=== PATIENT | male | born 1980 | race Caucasian/White ===

== ENCOUNTER 2019-01-11 16:52 | Emergency (ER) | payer SELFPAY ==
[2019-01-11 17:24] LABS: ABSOLUTE BASOPHILS # (AUTO) 0.1 10^3/uL (0.0-0.2); ABSOLUTE MONOCYTES (AUTO) 0.3 10^3/uL (0.1-1.4); ABSOLUTE NEUT (AUTO) 6.7 10^3/uL (1.7-8.2); EOSINOPHILS % (AUTO) 0.2 % (0-6); HEMOGLOBIN 14.9 g/dL (13.5-17.0); LYMPHOCYTES % (AUTO) 12.8 % (13-45); MEAN CORPUSCULAR HEMOGLOBIN 35.3 pg (27.0-33.4); MEAN CORPUSCULAR HGB CONC 34.7 g/dL (32.0-36.0); MEAN CORPUSCULAR VOLUME 102 fl (80-97); MONOCYTES % (AUTO) 3.2 % (3-13); PLATELET COUNT 223 10^3/uL (150-450); RED BLOOD COUNT 4.23 10^6/uL (4.35-5.55); RED CELL DISTRIBUTION WIDTH 14.1 % (11.5-14.0); SEGMENTED NEUTROPHILS % (AUTO) 82.8 % (42-78); TOTAL CELLS COUNTED % (AUTO) 100 %; WHITE BLOOD COUNT 8.1 10^3/uL (4.0-10.5)
[2019-01-11] MEDS ORDERED: NORMAL SALINE 1000 ML 1,000 ML IV ONE (17:41)
[2019-01-11] MEDS ORDERED: LORAZEPAM 0.5 MG TABLET PO ONE (17:41)
[2019-01-11 17:50] LABS: ALBUMIN 4.2 g/dL (3.5-5.0); ALKALINE PHOSPHATASE 60 U/L (38-126); ANION GAP 15 (5-19); ASPARTATE AMINO TRANSFERASE 91 U/L (17-59); BILIRUBIN,DIRECT 0.3 mg/dL (0.0-0.4); BILIRUBIN,TOTAL 0.9 mg/dL (0.2-1.3); BLOOD UREA NITROGEN 8 mg/dL (7-20); CALCIUM 9.4 mg/dL (8.4-10.2); CARBON DIOXIDE 22 mmol/L (22-30); CHLORIDE 100 mmol/L (98-107); CREATINE KINASE 293 U/L (55-170); GLUCOSE 106 mg/dL (75-110); POTASSIUM 4.3 mmol/L (3.6-5.0); TOTAL PROTEIN 6.8 g/dL (6.3-8.2)
[2019-01-11 18:00] LABS: CREATINE KINASE MB 3.22 ng/mL (<4.55)
[2019-01-11 18:01] LABS: TROPONIN I < 0.012 ng/mL
[2019-01-11 18:24] LABS: ALCOHOL 12 mg/dL (NONE DETECTED); SALICYLATE 1.7 mg/dL (2.0-20.0)
[2019-01-11 18:30] LABS: ACETAMINOPHEN < 10 ug/mL (10-30)
[2019-01-11 20:38] LABS: APPEARANCE,URINE CLEAR; BILIRUBIN,URINE NEGATIVE (NEGATIVE); COLOR,URINE YELLOW; GLUCOSE, URINE NEGATIVE (NEGATIVE); KETONES,URINE 80 mg/dL (NEGATIVE); LEUKOCYTE ESTERASE,URINE NEGATIVE (NEGATIVE); NITRITE,URINE NEGATIVE (NEGATIVE); PROTEIN,URINE 30 mg/dL (NEGATIVE); URINE SPECIFIC GRAVITY 1.026
[2019-01-11 20:51] LABS: URINE AMPHETAMINES SCREEN NEGATIVE; URINE BARBITURATES SCREEN NEGATIVE; URINE BENZODIAZEPINES SCREEN NEGATIVE; URINE COCAINE SCREEN NEGATIVE; URINE MARIJUANA (THC) SCREEN NEGATIVE; URINE METHADONE SCREEN NEGATIVE; URINE PHENCYCLIDINE SCREEN NEGATIVE
--- NOTE | 2019-01-12 00:25 | ER Document Report ---
ED Cardiac - General Chief Complaint: Chest Pain Stated Complaint: CHEST PAIN Time Seen by Provider: 01/11/19 17:11 Mode of Arrival: Ambulatory Information source: Patient - HPI Notes: Patient comes in with chest pain. He states it was left-sided. It was earlier today and is now gone. He states he was made better with nitroglycerin and they get worse with exertion. He states it occurred after walking approximately 20 miles today. He states he is currently homeless. He was mildly short of breath and sweaty however he has been walking 20 miles. He states that he has been told that he has had a heart attack previously when he was in a hospital in [place]. He states no stents were done and he did not have any type of heart catheterization done. He states he does not currently take any medications. He states he has been told he has schizophrenia but he does not take medicines currently. [place] Patient states that he occasionally has some thoughts of suicide but none currently and no plan. He states he does have trouble hearing voices and is currently having intermittent problems with this. He denies any type of visual hallucinations. No homicidal ideation. He states he has not seen psychiatry recently. He states that he drinks approximately a pint of vodka daily. He states he last drank this morning. He states he has gone through alcohol detox before. Patient's chest pain did not radiate. It was moderate in intensity and sharp. - Related Data Allergies/Adverse Reactions: No Known Allergies Allergy (Verified 01/11/19 16:57) Past Medical History - General Information source: Patient - Social History Smoking Status: Current Every Day Smoker Frequency of alcohol use: Heavy Drug Abuse: Methamphetamine Family History: Reviewed & Not Pertinent Patient has suicidal ideation: No Patient has homicidal ideation: No - Past Medical History Cardiac Medical History: Reports: Hx Heart Attack - Hx OK Endocrine Medical History: Reports: Hx Diabetes Mellitus Type 1 Psychiatric Medical History: Reports: Hx Depression, Hx Schizophrenia Review of Systems - Review of Systems Constitutional: Malaise, Weakness. denies: Chills, Fever Cardiovascular: Chest pain. denies: Palpitations Respiratory: Short of breath. denies: Cough Neurological/Psychological: Depression, Suicidal ideation - intermittently, none currently. denies: Homicidal ideation -: Yes All other systems reviewed and negative Physical Exam - Vital signs Vitals: Resp 12 01/11/19 16:58 Interpretation: Normal - General General appearance: Appears well, Alert - HEENT Head: Normocephalic, Atraumatic Eyes: Normal Pupils: PERRL - Respiratory Respiratory status: No respiratory distress Chest status: Nontender Breath sounds: Normal Chest palpation: Normal - Cardiovascular Rhythm: Regular Heart sounds: Normal auscultation Murmur: No - Abdominal Inspection: Normal Distension: No distension Bowel sounds: Normal Tenderness: Nontender Organomegaly: No organomegaly - Back Back: Normal, Nontender - Extremities General upper extremity: Normal inspection, Nontender, Normal color, Normal ROM, Normal temperature General lower extremity: Normal inspection, Nontender, Normal color, Normal ROM, Normal temperature, Normal weight bearing. No: Carmita's sign - Neurological Neuro grossly intact: Yes Cognition: Normal Orientation: AAOx4 [place] Coma Scale Eye Opening: Spontaneous [place] Coma Scale Verbal: Oriented [place] Coma Scale Motor: Obeys Commands [place] Coma Scale Total: 15 Speech: Normal Motor strength normal: LUE, RUE, LLE, RLE Sensory: Normal - Psychological Associated symptoms: Depressed, Flat affect. No: Aggressive, Agitated - Skin Skin Temperature: Warm Skin Moisture: Dry Skin Color: Normal Course - Re-evaluation Re-evalutation: 01/12/19 00:20 Patient presents with chest pain. EKG and enzymes show no evidence of coronary artery disease. He has had no further chest pain here with normal vital signs. I do not believe that the pain today was secondary to coronary artery disease. Patient does states that he is schizophrenic and has not been taking his medications. He states his been having some intermittent thoughts of suicide as well as problems with auditory hallucinations. He states he is currently homeless and does not have access to medications. He also states that he drinks a pint of vodka a day. I feel the patient is currently medically clear however I feel he would benefit from psychiatric consultation and input. Currently patient is awaiting psychiatric consultation. At this time, patient has no evidence of alcohol withdrawal. He is not tachycardic or hypertensive. He is not significantly agitated. 01/12/19 00:27 - Vital Signs Vital signs: Temp Pulse Resp BP Pulse Ox 98.2 F 84 18 122/78 99 01/11/19 17:07 01/11/19 17:07 01/12/19 01:00 01/11/19 18:31 01/11/19 18:31 - Laboratory Result Diagrams: 01/11/19 17:05 01/11/19 17:05 Laboratory results interpreted by me: 01/11/19 01/11/19 01/11/19 17:05 17:05 17:05 RBC 4.23 L MCV 102 H MCH 35.3 H RDW 14.1 H Lymph % (Auto) 12.8 L Seg Neutrophils % 82.8 H Sodium 136.7 L POC Glucose AST 91 H Creatine Kinase 293 H Urine Protein Urine Ketones Urine Blood Urine Urobilinogen Salicylates 1.7 L Acetaminophen < 10 L 01/11/19 01/11/19 17:12 20:22 RBC MCV MCH RDW Lymph % (Auto) Seg Neutrophils % Sodium POC Glucose 121 H AST Creatine Kinase Urine Protein 30 H Urine Ketones 80 H Urine Blood SMALL H Urine Urobilinogen 4.0 H Salicylates Acetaminophen - EKG Interpretation by Mi EKG shows normal: Sinus rhythm Rate: Normal - 67 Rhythm: NSR Brownell/QRS: No: Right axis deviation, Left axis deviation Discharge - Discharge Clinical Impression: Alcohol abuse Schizophrenia Qualifiers: Schizophrenia type: unspecified Qualified Code(s): F20.9 - Schizophrenia, unspecified Chest pain Qualifiers: Chest pain type: unspecified Qualified Code(s): R07.9 - Chest pain, unspecified Condition: Stable Disposition: PSYCH HOSP/UNIT
[2019-01-12] MEDS ORDERED: LORAZEPAM 0.5 MG TABLET PO ONE (03:17)
[2019-01-12 07:05] VITALS: BP 136/95
--- NOTE | 2019-01-12 09:52 | PSYCHOLOGICAL NOTE ---
Psych Note - Psych Note Date seen by psych provider: 01/12/19 Time seen by psych provider: 07:30 Psych Note: Reason for Consult: Consent permissions: none provided Patient reports that he asked someone to call EMS for him because he was having chest pain and dizziness. He states that in the past he is a suffered from renal failure and knows that he was probably very dehydrated because he walked from [place] to [place]. He continued to report that he is currently experiencing detox symptoms from alcohol as yesterday morning he only had 2 beers before walking and has not had any other alcohol since. Patient states he normally drinks approximately a liter of vodka a day. (Clinician notes patient previously had told attending physician he drinks a pint of vodka a day. He is not showing any significant physical signs of withdrawal currently ie shaking, difficult with speech, sweating, etc). Patient reports he was walking to [place] to get to the bus station because he plans to go to [facility]. He denies ever being [place] there because it is warm there and he always move south during the winter. Patient is chronic homeless and lives a nomad lifestyle. He denies any thoughts of suicidal and homicidal ideation however complains that last night he only received "2 tiny Ativan" and his 6 been experiencing "sweating shaking the DTs right now my body is sore my muscles are cramping." Patient states he has a history diagnosis of schizophrenia and bipolar. He reports that he was diagnosed bipolar since he was a kid and schizophrenia for the last 3 to 4 years. He confirms that he has been drinking since 20 years of age. He disclosed the last times he was on medication was proximally 2 months ago when he was discharged from mental health [facility] in [place]; "they only gave me 2 weeks supply all my other places give me a 2-month supply." He reports that the last medications he was on was gabapentin and Effexor and reports that it worked "pretty well." Patient states that he hears voices "all the time every day and" and confirms he is currently hearing them as evaluation is proceeding.; "I have to stop and listen for sac you I hear them." Patient states that he does not want sobriety however now that he is detoxing he feels it may be beneficial to finish since he "cause I have no money" so he is unable to purchase any alcohol today. Behavioral health team contacted [facility]; unfortunately, there are no male beds available at this time. Patient is alert and oriented to person, place, time and circumstance mood is overall euthymic with congruent affect. Patient denies suicidal homicidal ideations. Delusions are absent and behaviors congruent with an intact reality is presentation ie organized linear thought process. Patient reports auditory hallucinations however patient's description of symptoms are not do not correlate with known manifestations. Thought content appears to be focused on secondary gain. Eye contact is fair to poor; patient was woken for evaluation and liked to keep his eyes closed for a significant amount of evaluation. Conversational speech is overall within normal rate, tone and prosody. Intellectual abilities appear to be within the average range. Attention and concentration are overall good. Insight, judgment, impulse control are fair. Alcohol abuse Chronic homelessness No medication recommendations at this time Impression\\plan: Patient is cleared from acute psychiatric services. Patient's content demonstrates secondary gain motivation. There is significant concern the patient uses psychiatric inpatient treatment as a form of housing. Patient disclosed chronic homelessness and a nomad type lifestyle. This lifestyle [place]. He has been off medication for about 2 months and reports he is does not have any money, so he will be unable to fill a prescription. Patient would benefit from an outpatient mental health provider that can follow him and correctly identify symptom patterns for a more accurate diagnosis and treatment (there is concern that the patient reports chronic alcohol abuse since 20 years old and mental health gnosis of both psychosis and mood disorder). Patient reports Effexor working; however, it is not recommended to stop Effexor abruptly. At this time it would not be in the patient's best interest to restart this medication unless he was being followed by a outpatient mental health provider. Patient demonstrates forward thought processes as he discusses getting on a bus to go to [place] for the winter months. At this time he is not demonstrating behaviors indicating his response thing to internal stimuli i.e. organized linear thought processes and no difficulties with conversational speech. Patient does not meet involuntary commitment criteria. Local detox facility does not have any beds available at this time. Patient will be provided both [employer] sheet which lists economic resources in addition to mental health and substance abuse resource list which include contact information for detox facilities and mobile crisis. Dr. Teague was consulted and the care management of this patient; attending physicians in agreement with recommendations and disposition.
--- NOTE | 2019-01-12 10:58 | RADIOLOGY REPORT (SQ) ---
EXAM DESCRIPTION: CHEST SINGLE VIEW COMPLETED DATE/TIME: 01/12/2019 10:45 am REASON FOR STUDY: CP COMPARISON: None. EXAM PARAMETERS: NUMBER OF VIEWS: One view. TECHNIQUE: Single frontal radiographic view of the chest acquired. RADIATION DOSE: NA LIMITATIONS: None. FINDINGS: LUNGS AND PLEURA: No opacities, masses or pneumothorax. No pleural effusion. MEDIASTINUM AND HILAR STRUCTURES: No masses. Contour normal. HEART AND VASCULAR STRUCTURES: Heart normal in size. Normal vasculature. BONES: No acute findings. HARDWARE: None in the chest. OTHER: No other significant finding. IMPRESSION: NO ACUTE RADIOGRAPHIC FINDING IN THE CHEST. TECHNICAL DOCUMENTATION: JOB ID: [id number] [employer]- All Rights Reserved Reading location - IP/workstation name: [email or web address]
--- NOTE | 2019-01-12 18:03 | EKG REPORT ---
SEVERITY:- NORMAL ECG - SINUS RHYTHM : Confirmed by: Sylvie Sanders 12-Jan-2019 18:02:37
== END 2019-01-12 11:43 | disposition home or self-care (01) ==
LOC: ER 16:52
DX: R07.9 Chest pain, unspecified (principal); R42 Dizziness and giddiness; Z59.0 Homelessness; F10.10 Alcohol abuse, uncomplicated
CPT/HCPCS: 93005; 36415; 82553; 82962; 80307 ×4; 82550; 85025; 80053; 81001; 84484; 71045; 93010; J7030; 96360; 96361; 99285